=== PATIENT | male | born 1965 | race Caucasian/White ===

== ENCOUNTER 2020-12-27 06:39 | Day surgery (SDC) | payer OTHER ==
[2020-12-27] MEDS ORDERED: Lactated Ringers 1,000 ML IV SCH (07:00)
[2020-12-27] MEDS ORDERED: fentaNYL 100 MCG/2 ML SDV ONE (07:44)
[2020-12-27] MEDS ORDERED: Propofol 200 MG/20 ML SDV ONE ×2 (07:44→08:24)
== END 2020-12-27 09:40 | disposition home or self-care (01) ==
LOC: VM.SDS 06:39
PROVIDERS: ATTEND Student in an Organized Health Care Education/Training Program
DX: Z12.11 Encounter for screening for malignant neoplasm of colon (principal); D12.5 Benign neoplasm of sigmoid colon; D12.2 Benign neoplasm of ascending colon; D12.3 Benign neoplasm of transverse colon; I10 Essential (primary) hypertension; K62.1 Rectal polyp; I25.10 Atherosclerotic heart disease of native coronary artery without angina pectoris; E66.9 Obesity, unspecified; F17.210 Nicotine dependence, cigarettes, uncomplicated; Z86.73 Personal history of transient ischemic attack (TIA), and cerebral infarction without residual deficits; Z98.890 Other specified postprocedural states; Z88.0 Allergy status to penicillin; Z88.8 Allergy status to other drugs, medicaments and biological substances; Z68.32 Body mass index [BMI] 32.0-32.9, adult
CPT/HCPCS: 00811; 45380; 45385; J2704; J3010; J7120

== ENCOUNTER 2023-12-16 03:10 | Emergency (ER) | payer OTHER ==
[2023-12-16] MEDS: Ibuprofen 200 MG Tab PO ONE (03:39)
[2023-12-16] MEDS ORDERED: Sodium Chloride 0.9% 10 ML Syringe FLUSH PRN (03:50)
[2023-12-16] MEDS: HYDROmorphone 1 MG/ML Syringe SUBCUT ONE (06:42)
== END 2023-12-16 08:19 | disposition home or self-care (01) ==
LOC: VM.ED 03:10
DX: S82.141A Displaced bicondylar fracture of right tibia, initial encounter for closed fracture (principal); I25.10 Atherosclerotic heart disease of native coronary artery without angina pectoris; I10 Essential (primary) hypertension; E78.00 Pure hypercholesterolemia, unspecified; E66.9 Obesity, unspecified; F17.200 Nicotine dependence, unspecified, uncomplicated; Z68.32 Body mass index [BMI] 32.0-32.9, adult; Z86.73 Personal history of transient ischemic attack (TIA), and cerebral infarction without residual deficits; Z90.89 Acquired absence of other organs; Z88.0 Allergy status to penicillin; Z88.8 Allergy status to other drugs, medicaments and biological substances; Z79.82 Long term (current) use of aspirin; Z79.899 Other long term (current) drug therapy; W01.0XXA Fall on same level from slipping, tripping and stumbling without subsequent striking against object, initial encounter; Y99.0 Civilian activity done for income or pay
CPT/HCPCS: 73560-RT; 73700-RT; 96372; 99283; A9270-GY; J1171

== ENCOUNTER 2024-12-15 07:26 | Day surgery (SDC) | payer OTHER ==
[2024-12-15] MEDS: Lactated Ringers 1,000 ML IV SCH (07:45)
[2024-12-15] MEDS ORDERED: Propofol 200 MG/20 ML SDV ONE ×2 (07:51→09:44)
[2024-12-15] MEDS ORDERED: fentaNYL 100 MCG/2 ML SDV ONE (07:52)
== END 2024-12-15 10:37 | disposition home or self-care (01) ==
LOC: VM.SDS 07:26
PROVIDERS: ATTEND Student in an Organized Health Care Education/Training Program
DX: Z12.11 Encounter for screening for malignant neoplasm of colon (principal); D12.0 Benign neoplasm of cecum; D12.3 Benign neoplasm of transverse colon; I10 Essential (primary) hypertension; I25.10 Atherosclerotic heart disease of native coronary artery without angina pectoris; E66.811 Obesity, class 1; Z68.32 Body mass index [BMI] 32.0-32.9, adult; Z88.0 Allergy status to penicillin; Z88.8 Allergy status to other drugs, medicaments and biological substances; Z86.0101 Personal history of adenomatous and serrated colon polyps; Z79.899 Other long term (current) drug therapy
CPT/HCPCS: 45380; 45385; J2704; J3010; J7120; 00811